=== PATIENT | female | born 1935 | race Hispanic/Latino ===

== ENCOUNTER → 2019-10-11 | Outpatient (CLI) | payer MEDICARE ==
[~2019-10-11] VITALS: Ht 165.1 cm; Wt 102.5 kg
[~2019-10-11] MED LIST: REGADENOSON 0.4 MG/5 ML PF SYG IVP SCH
== END ==
LOC: SHCH 08:33
PROVIDERS: ATTEND Internal Medicine Cardiovascular Disease
DX: I25.10 Atherosclerotic heart disease of native coronary artery without angina pectoris (principal)
CPT/HCPCS: 78452; 93017; 96374; A9500 ×2; J2785

== ENCOUNTER → 2019-11-20 | Outpatient (CLI) | payer MEDICARE | END | disposition home or self-care (01) | LOC: SHCH 07:36 → EDUNIT# 08:00 | PROVIDERS: ATTEND Internal Medicine Cardiovascular Disease | DX: I65.23 Occlusion and stenosis of bilateral carotid arteries (principal) | CPT/HCPCS: 93880 ==

== ENCOUNTER → 2019-11-22 | Outpatient (CLI) | payer MEDICARE | END | disposition home or self-care (01) | LOC: SHCH 07:59 → EDUNIT# 08:30 | PROVIDERS: ATTEND Internal Medicine Cardiovascular Disease | DX: I73.9 Peripheral vascular disease, unspecified (principal) | CPT/HCPCS: 93925 ==

== ENCOUNTER 2019-12-24 08:38 | Observation (INO) | payer MEDICARE ==
[2019-12-19 09:56] LABS: BASOPHILS % (AUTO) 0.5 % (0.0-5.0); EOSINOPHILS % (AUTO) 2.9 % (0.0-8.0); HEMATOCRIT 42.6 % (36-48); MEAN CORPUSCULAR HEMOGLOBIN 28.9 pg (27.0-33.0); MEAN CORPUSCULAR HGB CONC 32.4 g/dL (32.0-36.0); MEAN CORPUSCULAR VOLUME 89.1 fL (79-99); NEUTROPHILS % (AUTO) 55.3 % (40.0-77.0); PLATELET COUNT (AUTO) 294 K/uL (130-400); RED BLOOD CELL COUNT(AUTO) 4.78 MIL/uL (4.00-5.50); RED CELL DISTRIBUTION WIDTH 13.2 % (11.0-15.5); WHITE BLOOD COUNT (AUTO) 6.5 K/uL (4.8-10.8)
[2019-12-19 10:11] LABS: CREATININE 0.7 mg/dL (0.5-1.5); POTASSIUM 4.3 mmol/L (3.5-5.1)
[2019-12-19 10:13] LABS: INR 0.95 (0.85-1.15); PARTIAL THROMBOPLASTIN TIME 26.1 SEC (26.3-35.5)
[2019-12-19 10:21] VITALS: BP 170/74
[2019-12-19 10:49] LABS: APPEARANCE,URINE Clear (CLEAR); BILIRUBIN,URINE Negative (NEGATIVE); COLOR,URINE Yellow (YELLOW); GLUCOSE, URINE (UA) Negative (NEGATIVE); KETONES,URINE Negative (NEGATIVE); LEUKOCYTE ESTERASE ,URINE Moderate (NEGATIVE); NITRATE,URINE Negative (NEGATIVE); OCCULT BLOOD,URINE Negative (NEGATIVE); PH,URINE 6.5 (5.0-8.0); PROTEIN,URINE Negative (NEGATIVE)
[2019-12-19 11:33] LABS: BACTERIA,URINE Few /HPF (None Seen); RBC,URINE 0-1 /HPF (0-1)
[2019-12-24] VITALS (30 sets, daily range): BP systolic 90–157; BP diastolic 46–92
[~2019-12-24] VITALS: Ht 156.2 cm; Wt 102.0 kg
[~2019-12-24 08:38] MED LIST changes: +ACETAMINOPHEN 325 MG TAB PO PRN; +AEC81 PO; +ALEN70TA10 PO; +GABA-531 PO; +ICOS1CAP PO; +LATA7.5D OU; +LEVO100T12 PO; +LINA145C PO; +LISI-613 PO; +METO-408 PO; +OMEP40CA13 PO; +PRAV10TA39 PO; -REGADENOSON 0.4 MG/5 ML PF SYG IVP SCH; +SODIUM CHLORIDE 0.9% 500ML 500 ML IV SCH; +TRAM-355 PO; +VITAMIN D PO
[2019-12-24] MEDS ORDERED: SODIUM BICARB 50MEQ 50ML VIAL ONE (09:53)
[2019-12-24] MEDS ORDERED: IOHEXOL-350 50ML VIAL IV ONE ×2 (09:53→12:08)
[2019-12-24] MEDS ORDERED: HEPARIN SODIUM 1000UNIT/ML 10ML VIAL ONE (09:53)
[2019-12-24] MEDS ORDERED: IOHEXOL 350 MG/ML 100ML INFUS..BTL IV ONE (09:53)
[2019-12-24] MEDS ORDERED: NITROGLYCERIN 2 MG/VIAL VIAL IV ONE (09:53)
[2019-12-24] MEDS ORDERED: MIDAZOLAM HCL 1 MG/ML 2ML VIAL ONE (09:54)
[2019-12-24] MEDS ORDERED: MEPERIDINE-PF 25 MG/ML SYG ONE (09:54)
[2019-12-24] MEDS ORDERED: LIDOCAINE HCL 2% 20ML ONE (09:54)
[2019-12-24] MEDS ORDERED: CLOPIDOGREL BISULFATE 300 MG TAB ONE (12:30)
[2019-12-24] MEDS ORDERED: ASPIRIN 81MG TAB.CHEW ONE (12:39)
[2019-12-24] MEDS ORDERED: TRAMADOL /APAP 37.5MG/325MG TAB PO PRN (13:00)
[2019-12-24] MEDS ORDERED: ONDANSETRON HCL 4 MG/2 ML VIAL IVP PRN (13:00)
--- NOTE | 2019-12-24 17:40 | NUR ---
PT transferred to room 226, report called to YISEL Waddell prior to taking pt upstairs. Pt awake, alert, s any signs of distress, just finished dinner. Dressing to right radial remain clean, dry and intact, site soft, non-tender. Dressing to right groin remain clean, dry, and intact, site soft non-tender. Care rendered over to medical chemist at bedside. Called pt's daughter, Yissel to let her know that the pt was moved to 226.
--- NOTE | 2019-12-24 18:40 | NUR ---
ARRIVAL TO FLOOR PATIENT ARRIVED VIA STRETCHER WITH DAY SURGERY NURSE. PATIENT IS AAOX4. NO SIGNS OF DISTRESS NOTED. PATIENT DENIES HAVING CHEST PAIN AT THIS TIME. PLACED ON TELEMETRY MONITORING. PATIENT IS LYING IN REVERSE TRENDELENBERG POSITION HOB ELEVATED 15 DEGREES, RIGHT LEFT REMAINS STRAIGHT. PATIENT INSTRUCTED NOT TO BEND LEG AT THIS TIME. PULSES GOOD PRESENT TO GEORGE. DORSAL PEDAL SITES.
[2019-12-24] MEDS: PHARMACY COMMUNICATION MISC SCH ×2 (19:20→22:43)
[2019-12-24] MEDS: SODIUM CHLORIDE 0.9% 1000ML 1,000 ML IV SCH (19:20)
[2019-12-24] MEDS: ALPRAZOLAM 0.5 MG TABLET PO SCH ×2 (19:20→20:49)
[2019-12-24] MEDS: FISH OIL 1000 MG/CAP PO SCH (20:48)
[2019-12-24] MEDS ORDERED: LATANOPROST 2.5 ML DROPS OU SCH (21:00)
[2019-12-24] MEDS ORDERED: VITAMIN D PO SCH (21:00)
[2019-12-24] MEDS ORDERED: SIMVASTATIN 10 MG TABLET PO SCH (21:00)
[2019-12-24] MEDS ORDERED: LISINOPRIL 20 MG TABLET PO SCH (21:00)
[2019-12-24] MEDS ORDERED: GABAPENTIN 300 MG CAPSULE PO SCH (21:00)
[2019-12-25] VITALS: BP 108/56
[2019-12-25] MEDS: SODIUM CHLORIDE 0.9% 1000ML 1,000 ML IV SCH (01:07)
[2019-12-25 03:49] VITALS: BP 103/44
[2019-12-25 04:29] LABS: HEMATOCRIT 34.5 % (36-48); MEAN CORPUSCULAR HEMOGLOBIN 29.1 pg (27.0-33.0); MEAN CORPUSCULAR HGB CONC 32.8 g/dL (32.0-36.0); MEAN CORPUSCULAR VOLUME 88.9 fL (79-99); PLATELET COUNT (AUTO) 246 K/uL (130-400); RED BLOOD CELL COUNT(AUTO) 3.88 MIL/uL (4.00-5.50); RED CELL DISTRIBUTION WIDTH 13.4 % (11.0-15.5); WHITE BLOOD COUNT (AUTO) 5.2 K/uL (4.8-10.8)
[2019-12-25 04:42] LABS: CREATININE 0.7 mg/dL (0.5-1.5); POTASSIUM 3.8 mmol/L (3.5-5.1)
[2019-12-25] MEDS: PHARMACY COMMUNICATION MISC SCH (06:48)
[2019-12-25] MEDS ORDERED: LEVOTHYROXINE 100 MCG TABLET PO SCH (07:30)
[2019-12-25 07:45] VITALS: BP 112/65
[2019-12-25] MEDS: FISH OIL 1000 MG/CAP PO SCH (08:18)
[2019-12-25] MEDS: ALPRAZOLAM 0.5 MG TABLET PO SCH (08:19)
[2019-12-25] MEDS ORDERED: ASPIRIN 81 MG EC TAB PO SCH (09:00)
[2019-12-25] MEDS ORDERED: CLOPIDOGREL BISULFATE 75 MG TAB PO SCH (09:00)
[2019-12-25] MEDS ORDERED: PANTOPRAZOLE SODIUM 40 MG TABLET.DR PO SCH (09:00)
[2019-12-25] MEDS ORDERED: ***HM***(Linaclotide (Linzess) 145 MCG) PO SCH (09:00)
[2019-12-25] MEDS ORDERED: METOPROLOL SUCCINATE 50 MG TAB.SR.24H PO SCH (09:00)
--- NOTE | 2019-12-25 11:43 | NUR ---
PATIENT READY FOR DISCHARGE HOME PER MD. GAVE PATIENT DC INFORMATION AND INSTRUCTIONS. DC IV LINE. PATIENT WILL BE TAKEN DOWNSTAIRS VIA WHEELCHAIR.
[2019-12-25 11:51] VITALS: BP 96/50
--- NOTE | 2019-12-25 14:34 | NUR ---
0300 patient signed GONZALEZ Letter. I faxed GONZALEZ Letter to [phone] and placed in chart under consent tab
[2019-12-31] MEDS ORDERED: ALENDRONATE SODIUM 35 MG TAB PO SCH (06:30)
== END 2019-12-25 12:01 | disposition home or self-care (01) ==
LOC: DAH 08:38 → DAHIP 08:39 → DAH 08:39 → 2DH 18:52
PROVIDERS: ADMIT Internal Medicine; ATTEND Internal Medicine
DX: I25.10 Atherosclerotic heart disease of native coronary artery without angina pectoris (principal); T82.855A Stenosis of coronary artery stent, initial encounter; I10 Essential (primary) hypertension; E78.5 Hyperlipidemia, unspecified; K21.9 Gastro-esophageal reflux disease without esophagitis; F17.200 Nicotine dependence, unspecified, uncomplicated; E66.01 Morbid (severe) obesity due to excess calories; Z96.659 Presence of unspecified artificial knee joint; Z79.82 Long term (current) use of aspirin; Z79.890 Hormone replacement therapy; Z79.899 Other long term (current) drug therapy; Z95.5 Presence of coronary angioplasty implant and graft; Y83.1 Surgical operation with implant of artificial internal device as the cause of abnormal reaction of the patient, or of later complication, without mention of misadventure at the time of the procedure; Z68.41 Body mass index [BMI] 40.0-44.9, adult
CPT/HCPCS: 36415 ×2; 71045; 80048 ×2; 80061; 81001; 85025; 85027; 85610; 85730; 93005; 93458; A4215; A4216; A4221; A4222; A4223 ×3; A4606; A4663; C1725 ×2; C1760; C1769 ×2; C1874; C1887; C1894 ×2; C9600; G0378 ×23; J1644 ×2; J2175; J2250; J3490 ×3; J7030; Q9965; Q9967 ×3; 99156; 99157

== ENCOUNTER → 2021-02-25 | Outpatient (CLI) | payer MEDICARE ==
[~2021-02-25] MED LIST changes: -ACETAMINOPHEN 325 MG TAB PO PRN; -ALEN70TA10 PO; +ALEN70TA80 PO; -LISI-613 PO; +LISI20TA24 PO; -OMEP40CA13 PO; -SODIUM CHLORIDE 0.9% 500ML 500 ML IV SCH
== END | disposition home or self-care (01) ==
LOC: SHCH 14:54
PROVIDERS: ATTEND Internal Medicine Cardiovascular Disease
DX: R06.00 Dyspnea, unspecified (principal)
CPT/HCPCS: 93306; 93356

== ENCOUNTER → 2021-03-02 | Outpatient (CLI) | payer MEDICARE ==
[~2021-03-02] VITALS: Ht 165.1 cm; Wt 103.0 kg
[~2021-03-02] MED LIST changes: +REGADENOSON 0.4 MG/5 ML PF SYG IVP SCH
== END | disposition home or self-care (01) ==
LOC: SHCH 07:36
PROVIDERS: ATTEND Internal Medicine Cardiovascular Disease
DX: R06.00 Dyspnea, unspecified (principal); I10 Essential (primary) hypertension; E78.5 Hyperlipidemia, unspecified; E66.9 Obesity, unspecified; K21.9 Gastro-esophageal reflux disease without esophagitis; F17.210 Nicotine dependence, cigarettes, uncomplicated; Z79.899 Other long term (current) drug therapy
CPT/HCPCS: 78452; 93017; 96374; A9500 ×2

== ENCOUNTER 2021-03-22 06:53 | Day surgery (SDC) | payer MEDICARE ==
[2021-03-19 13:10] LABS: APPEARANCE,URINE Clear (CLEAR); BILIRUBIN,URINE Negative (NEGATIVE); COLOR,URINE Yellow (YELLOW); GLUCOSE, URINE (UA) Negative (NEGATIVE); KETONES,URINE Negative (NEGATIVE); LEUKOCYTE ESTERASE ,URINE Trace (NEGATIVE); NITRATE,URINE Negative (NEGATIVE); OCCULT BLOOD,URINE Negative (NEGATIVE); PH,URINE 6.5 (5.0-8.0); PROTEIN,URINE Negative (NEGATIVE); UROBILINOGEN,URINE 0.2 mg/dL (0.2-1.0)
[2021-03-19 13:26] LABS: BASOPHILS % (AUTO) 0.4 % (0.0-5.0); EOSINOPHILS % (AUTO) 1.1 % (0.0-8.0); HEMATOCRIT 37.8 % (36-48); MEAN CORPUSCULAR HEMOGLOBIN 29.9 pg (27.0-33.0); MEAN CORPUSCULAR HGB CONC 32.3 g/dL (32.0-36.0); MEAN CORPUSCULAR VOLUME 92.6 fL (79-99); MONOCYTES % (AUTO) 8.5 % (3.0-13.0); NEUTROPHILS % (AUTO) 61.5 % (40.0-77.0); PLATELET COUNT (AUTO) 316 K/uL (130-400); RED BLOOD CELL COUNT(AUTO) 4.08 MIL/uL (4.00-5.50); RED CELL DISTRIBUTION WIDTH 14.1 % (11.0-15.5); WHITE BLOOD COUNT (AUTO) 7.9 K/uL (4.8-10.8)
[2021-03-19 13:36] LABS: CREATININE 0.9 mg/dL (0.5-1.5); POTASSIUM 4.4 mmol/L (3.5-5.1)
[2021-03-19 13:36] LABS: BACTERIA,URINE Rare /HPF (None Seen); RBC,URINE 0-1 /HPF (0-1); SQUAMOUS EPITHELIAL CELL,UR Rare /HPF (0-2); WBC,URINE 0-1 /HPF (0-1)
[2021-03-19 13:38] LABS: INR 0.94 (0.85-1.15); PROTHROMBIN TIME 10.3 SEC (9.6-11.6)
[2021-03-19 13:39] LABS: PARTIAL THROMBOPLASTIN TIME 23.6 SEC (26.3-35.5)
[2021-03-19 17:59] VITALS: BP 152/66
[2021-03-22] VITALS (10 sets, daily range): BP systolic 103–177; BP diastolic 45–90
[~2021-03-22] VITALS: Ht 157.5 cm; Wt 105.7 kg
[~2021-03-22 06:53] MED LIST changes: -ALEN70TA80 PO; +CLOP75TA32 PO; -GABA-531 PO; -LATA7.5D OU; -LINA145C PO; -REGADENOSON 0.4 MG/5 ML PF SYG IVP SCH; -VITAMIN D PO; +vitamin d3 PO
[2021-03-22] MEDS ORDERED: SODIUM CHLORIDE 0.9% 1000ML 1,000 ML IV ONE (07:46)
[2021-03-22] MEDS ORDERED: ALBU8.5H8 IH (08:19)
[2021-03-22] MEDS ORDERED: HEPARIN SODIUM 1000UNIT/ML 10ML VIAL ONE (08:30)
[2021-03-22] MEDS ORDERED: NITROGLYCERIN 2 MG/VIAL VIAL IV ONE (08:30)
[2021-03-22] MEDS ORDERED: IOHEXOL 350 MG/ML 100ML INFUS..BTL IV ONE (08:30)
[2021-03-22] MEDS ORDERED: IOHEXOL-350 50ML VIAL IV ONE (08:30)
[2021-03-22] MEDS ORDERED: SODIUM BICARB 50MEQ 50ML VIAL 50 ML ONE (08:30)
[2021-03-22] MEDS ORDERED: LIDOCAINE HCL 2% 20ML ONE (08:31)
[2021-03-22] MEDS ORDERED: MEPERIDINE-PF 25 MG/ML SYG ONE (09:39)
[2021-03-22] MEDS ORDERED: MIDAZOLAM HCL 1 MG/ML 2ML VIAL ONE (09:39)
[2021-03-22] MEDS ORDERED: SODIUM CHLORIDE 0.9% 1000ML 1,000 ML IV SCH (10:45)
== END 2021-03-22 14:29 | disposition home or self-care (01) ==
LOC: DAH 06:53
PROVIDERS: ATTEND Internal Medicine Cardiovascular Disease
DX: I25.118 Atherosclerotic heart disease of native coronary artery with other forms of angina pectoris (principal); I10 Essential (primary) hypertension; E78.5 Hyperlipidemia, unspecified; K21.9 Gastro-esophageal reflux disease without esophagitis; E66.9 Obesity, unspecified; Z95.5 Presence of coronary angioplasty implant and graft; F17.200 Nicotine dependence, unspecified, uncomplicated; Z90.49 Acquired absence of other specified parts of digestive tract; Z79.82 Long term (current) use of aspirin; Z79.01 Long term (current) use of anticoagulants; Z79.899 Other long term (current) drug therapy
CPT/HCPCS: 36415; 71045; 80048; 81001; 85025; 85610; 85730; 93005; 93458; A4215; A4216; A4221; A4222; A4223 ×3; A4606; A4663; C1760; C1894; J1644; J2175; J2250; J3490 ×3; J7030; Q9965; Q9967 ×2; 99156; 99157